=== PATIENT | male | born 1985 | race Caucasian/White ===

== ENCOUNTER 2017-07-12 12:48 | Day surgery (SDC) | payer OTHER ==
--- NOTE | 2017-07-01 11:34 | HP ---
DATE OF SURGERY: 07/12/2017 HISTORY OF PRESENT ILLNESS: The patient is a 32 who had left area with methicillin resistant staphylococcus aureus in the past. He has been on some Bactrim DS. It is decreased in size a little bit but still had persistent area. He also had pilonidal cyst whether ruptured cyst or abscess is unclear. PAST MEDICAL HISTORY: Hypertension, hypothyroidism. He was told he had methicillin resistant staphylococcus aureus infection in [facility] in the past. MEDICATIONS: Lisinopril, levothyroxine. The patient had been on some ibuprofen. ALLERGIES: NKDA. FAMILY HISTORY: Diabetes, hypertension. SOCIAL HISTORY: He chews one can a day, denies current smoking. Alcohol use six shots per week denies abuse otherwise. REVIEW OF SYSTEMS: Twelve systems reviewed per admission assessment. No chest pain or palpitations other systems negative or noncontributory as above and per preadmission questionnaire. PHYSICAL EXAMINATION: GENERAL: No acute distress. HEENT: Sclerae nonicteric. NECK: No JVD. CHEST: Equal excursion, nonlabored breathing. CVS: Regular rate and rhythm. ABDOMEN: Soft, nontender. EXTREMITIES: Left arm area with persistent indurated area nonhealing wound in need of debridement as well as pilonidal area, ruptured cyst or abscess site. NEURO: Alert, moving extremities symmetrically. IMPRESSION: Nonhealing area left arm and pilonidal area whether ruptured cyst, abscess he is in need of excisional debridement and drainage probable packing. Risks and benefits explained in detail including but not limited to bleeding or infection, risk of nonhealing of the wound possibly requiring other debridement or procedure or other treatments, possibility of getting other areas or other sites of the body, general risk of anesthesia, deep venous thrombosis, pulmonary embolism, pneumonia, risk of aches and pains but not limited to. He understands and agrees to the planned procedure as well as overall risk for recurrence and will proceed with excisional debridement and drainage left arm and pilonidal area ruptured cyst or abscess areas.
[~2017-07-12 12:48] MED LIST: Lactated Ringers 1,000 ML IV ONE; Lactated Ringers 1,000 ML IV SCH; Sensorcaine 0.25% 10 ML ONE
== END 2017-07-12 14:02 | disposition home or self-care (01) ==
LOC: SDC 12:48
PROVIDERS: ATTEND Surgery
PROC: 0JDH0ZZ Extraction of Left Lower Arm Subcutaneous Tissue and Fascia, Open Approach (ICD-10-PCS; principal; 2017-07-12)
DX: L02.414 Cutaneous abscess of left upper limb (principal); Z53.29 Procedure and treatment not carried out because of patient's decision for other reasons; Z86.14 Personal history of Methicillin resistant Staphylococcus aureus infection; I10 Essential (primary) hypertension; E03.9 Hypothyroidism, unspecified; Z79.899 Other long term (current) drug therapy